=== PATIENT | female | born 1950 | race Caucasian/White ===

== ENCOUNTER 2022-09-06 15:14 | Emergency (ER) | payer MEDICARE ==
[~2022-09-06] VITALS: Ht 172.7 cm; Wt 78.5 kg
[2022-09-06 15:27] VITALS: BP 135/80
== END 2022-09-06 17:41 | disposition home or self-care (01) ==
LOC: ER 15:14
DX: S61.412A Laceration without foreign body of left hand, initial encounter (principal); W26.0XXA Contact with knife, initial encounter
CPT/HCPCS: 12002; 99282-25